=== PATIENT | female | born 1945 | race Caucasian/White ===

== ENCOUNTER 2017-05-13 12:25 | Day surgery (SDC) | payer OTHER ==
[~2017-05-13] VITALS: Ht 160 cm; Wt 78.3 kg
[~2017-05-13 12:25] MED LIST: ASPI325; ASPI81EC; Coq-10100 MG PO; FERR325 PO; FISH1000 PO; GABA100 PO; GLUC500; HYDACE5; HYDCHL25 PO; HYDCHL50; HYDROCHLOROTHIAZIDE; INTRINSI B12-F1 EACH PO; IRON; KETO10; METO50ER; MULTI VITAMIN1 EACH; MULVITB; MULVITMINF; MYRBETRIQ25 MG PO; OMEG1CAP30; OMEGA; POTASSIUM; POTCHL20ER; POTCHL20ER PO; VITAMIN D; VITAMIN D35000 UNIT
[2017-05-13 14:28] LABS: Anion Gap 8 mmol/L (6-16); Blood Urea Nitrogen 12 mg/dL (8-24); Bun/Creatinine Ratio 17.1 (12.0-20.0); CO2, Blood 25 mmol/L (21-32); Calcium, Blood 8.3 mg/dL (8.5-10.1); Chloride, Blood 114 mmol/L (98-108); Glomerular Filtration Rate >60 (60-); Glucose, Blood 94 mg/dL (70-99); Potassium, Blood 3.7 mmol/L (3.5-5.5); Sodium, Blood 147 mmol/L (136-145)
== END 2017-05-13 14:58 | disposition home or self-care (01) ==
LOC: ORSCSDS 12:25
PROVIDERS: Internal Medicine Gastroenterology
PROC: 0DBP8ZX Excision of Rectum, Via Natural or Artificial Opening Endoscopic, Diagnostic (ICD-10-PCS; principal; 2017-05-13 13:45)
DX: R19.5 Other fecal abnormalities (principal); K62.1 Rectal polyp; K57.30 Diverticulosis of large intestine without perforation or abscess without bleeding; D50.9 Iron deficiency anemia, unspecified; E87.6 Hypokalemia; Z87.891 Personal history of nicotine dependence
CPT/HCPCS: 80048; 88305; J1980; J7120

== ENCOUNTER → 2017-08-05 | Outpatient (CLI) | payer OTHER ==
[2017-08-06 14:19] LABS: Stool Occult Bld Immuno 1 Positive (NEGATIVE)
== END ==
LOC: OLS 09:30 → LAB SHORT 09:30 → LAB FUT 08-01 14:15
DX: D50.9 Iron deficiency anemia, unspecified (principal)
CPT/HCPCS: 82274

== ENCOUNTER → 2018-08-27 | Outpatient (CLI) | payer MEDICARE ==
[2018-08-27 13:17] LABS: Source, Urine Catheter
[2018-08-27 13:35] LABS: Appearance, Urine Hazy (Clear); Bilirubin, Urine Neg (Neg); Blood, Urine Neg (Neg); Color, Urine Yellow (P-Yellow); Glucose Qualitative, Urine Neg (Neg); Ketones, Urine Neg (Neg); Leukocyte Esterase, Urine 2+ (Neg); Nitrite, Urine Pos (Neg); Protein, Urine Neg (Neg); Urobilinogen, Urine NORM (Normal)
[2018-08-27 14:09] LABS: Red Blood Cells, Urine 0-2 /hpf (0-2); White Blood Cells, Urine 25-50 /hpf (0-5)
[2018-08-27 14:10] LABS: Bacteria Many /hpf; Squamous Epithelial Cells Rare /hpf (Few)
[2018-08-28 15:06] LABS: HPV 16 Negative (Negative); HPV 18 Negative (Negative); HPV OTHER HR TYPES Positive (Negative)
== END | disposition home or self-care (01) ==
LOC: LAB 13:14 → LAB SHORT 13:14
PROVIDERS: Obstetrics & Gynecology Gynecology
DX: R30.0 Dysuria (principal); Z91.89 Other specified personal risk factors, not elsewhere classified
CPT/HCPCS: 81001; 87077; 87086; 87186; 87624; 87625; G0123

== ENCOUNTER 2019-04-24 09:57 | Day surgery (SDC) | payer MEDICARE ==
[~2019-04-24] VITALS: Ht 160 cm; Wt 73.0 kg
[~2019-04-24 09:57] MED LIST changes: +CLARITIN-D 121 EACH PO; +FERSU300 PO; +GABA100; +GLUCOSAMINE CH1 EAC3 PO; +HYDCHL50 PO; +K-Dur20 MEQ PO; +Multiple Vitam1 EACH PO; +OMEGA-3 EC SOF1 EAC1 PO; +OXYB5 PO; +Super B Comple1 EAC2 PO; +TUMERIC PO; +TUMS500 MG PO; +VITAMIN D35000 UNI2 PO; +YUVAFEM10 MCG
== END 2019-04-24 13:54 | disposition home or self-care (01) ==
LOC: ORSCSDS 09:57
PROVIDERS: Podiatrist Foot & Ankle Surgery
PROC: 0SPM04Z Removal of Internal Fixation Device from Right Metatarsal-Phalangeal Joint, Open Approach (ICD-10-PCS; principal; 2019-04-24 11:30)
PROC: 0QBL0ZZ Excision of Right Tarsal, Open Approach (ICD-10-PCS; principal; 2019-04-24 11:30)
PROC: 0QBN0ZZ Excision of Right Metatarsal, Open Approach (ICD-10-PCS; principal; 2019-04-24 11:30)
PROC: 0SGM04Z Fusion of Right Metatarsal-Phalangeal Joint with Internal Fixation Device, Open Approach (ICD-10-PCS; principal; 2019-04-24 11:30)
DX: M19.071 Primary osteoarthritis, right ankle and foot (principal); M20.5X1 Other deformities of toe(s) (acquired), right foot; T84.84XA Pain due to internal orthopedic prosthetic devices, implants and grafts, initial encounter; Z79.899 Other long term (current) drug therapy
CPT/HCPCS: C1713; J0171; J0690; J1100; J2250; J2370; J2405; J2704; J3010; J7120

== ENCOUNTER → 2019-10-15 | Outpatient (CLI) | payer OTHER | LOC: LAB SHORT 15:20 → LAB 15:20 | DX: R30.0 Dysuria (principal) | CPT/HCPCS: 87077; 87086; 87186 ==

== ENCOUNTER → 2020-07-13 | Outpatient (CLI) | payer OTHER ==
[2020-07-13 13:17] LABS: Appearance, Urine Clear (Clear); Bilirubin, Urine Neg (Neg); Blood, Urine Neg (Neg); Color, Urine Yellow (P-Yellow); Glucose Qualitative, Urine Neg (Neg); Ketones, Urine Neg (Neg); Leukocyte Esterase, Urine Neg (Neg); Nitrite, Urine Neg (Neg); Protein, Urine Neg (Neg); Specific Gravity, Urine 1.015 (1.003-1.022); Urobilinogen, Urine NORM (Normal)
== END | disposition home or self-care (01) ==
LOC: LAB 12:18 → LAB SHORT 12:18
PROVIDERS: Registered Nurse
DX: R35.0 Frequency of micturition (principal); R30.0 Dysuria
CPT/HCPCS: 81003

== ENCOUNTER → 2020-09-23 | Outpatient (CLI) | payer OTHER ==
[2020-09-23 17:51] LABS: Phosphorus, Urine 55.2 mg/dL (20.0-60.0)
[2020-09-23 17:57] LABS: Protein, Urine Quantitative 13.3 mg/dL (0.0-11.9); Sodium, Urine 47 mmol/L (20-110); Uric Acid, Urine 41.2 mg/dL (7.5-49.5); Urine Potassium 46 mmol/L (12.0-75.0)
[2020-09-23 18:03] LABS: Calcium, Urine <5.0 mg/dL (< 17.5); Calcium, Urine Calculation Unable to Calculate mg/24hrs (42.0-353.0)
[2020-09-23 18:10] LABS: Microalbumin, Urine Quant. <5.000 mg/L (0.000-20.000)
== END | disposition home or self-care (01) ==
LOC: LAB SHORT 09:30 → LAB 09:30
PROVIDERS: Internal Medicine Nephrology
DX: N18.30 Chronic kidney disease, stage 3 unspecified (principal); D63.1 Anemia in chronic kidney disease; M10.9 Gout, unspecified; N25.81 Secondary hyperparathyroidism of renal origin; E55.9 Vitamin D deficiency, unspecified; E78.00 Pure hypercholesterolemia, unspecified; D51.8 Other vitamin B12 deficiency anemias; D52.8 Other folate deficiency anemias; D50.0 Iron deficiency anemia secondary to blood loss (chronic); R94.5 Abnormal results of liver function studies; R76.9 Abnormal immunological finding in serum, unspecified; R94.6 Abnormal results of thyroid function studies
CPT/HCPCS: 81050; 82043; 82340; 82570; 84105; 84133; 84156; 84300; 84560

== ENCOUNTER → 2020-12-05 | Outpatient (CLI) | payer OTHER ==
[2020-12-05 11:22] LABS: BASOPHILS ABSOLUTE AUTO 0.06 K/mm3 (0.00-0.23); BASOPHILS PERCENT AUTO 1 % (0-2); EOSINOPHILS ABSOLUTE AUTO 0.24 K/mm3 (0.00-0.68); EOSINOPHILS PERCENT AUTO 4 % (0-6); Hematocrit 41.5 % (33.0-51.0); Hemoglobin 13.1 g/dL (11.5-16.0); IMMATURE GRAN ABSOLUTE AUTO 0.04 K/mm3 (0.00-0.10); IMMATURE GRAN PERCENT AUTO 1 % (0-1); LYMPHOCYTES ABSOLUTE AUTO 1.04 K/mm3 (0.84-5.20); LYMPHOCYTES PERCENT AUTO 17 % (21-46); MONOCYTES ABSOLUTE AUTO 0.43 K/mm3 (0.16-1.47); MONOCYTES PERCENT AUTO 7 % (4-13); Mean Corpuscular HGB 31.2 pg (26.0-34.0); Mean Corpuscular HGB Conc 31.6 g/dL (31.5-36.5); Mean Corpuscular Volume 99 fL (80-100); Mean Platelet Volume 9.7 fL (9.1-12.4); NEUTROPHILS ABSOLUTE AUTO 4.18 K/mm3 (1.96-9.15); NEUTROPHILS PERCENT AUTO 70 % (41-73); Platelet Count 221 K/mm3 (150-400); RDW Coefficient Variation 13.2 % (11.7-14.2); RDW Standard Deviation 47.8 fL (35.1-46.3); White Blood Cell Count 5.99 K/mm3 (4.00-11.30)
[2020-12-05 13:51] LABS: Albumin, Blood 3.3 g/dL (3.4-5.0); Albumin/Globulin Ratio 1.1 (0.8-1.8); Bilirubin, Total 0.6 mg/dL (0.1-1.0); Calcium, Blood 8.5 mg/dL (8.5-10.1); Creatinine, Blood 0.96 mg/dL (0.40-1.00); Percent Saturation 29.2 % (15.0-50.0); Potassium, Blood 4.4 mmol/L (3.5-5.5); Total Protein, Blood 6.3 g/dL (6.4-8.2)
== END | disposition home or self-care (01) ==
LOC: OLS 10:28 → LAB SHORT 10:28 → LAB FUT 09-27 10:55
PROVIDERS: Nurse Practitioner Family
DX: R53.83 Other fatigue (principal)
CPT/HCPCS: 36415; 80053; 82043; 82306; 82607; 82728; 82746; 83540; 83550; 85025

== ENCOUNTER → 2021-01-07 | Outpatient (CLI) | payer OTHER ==
[2021-01-08 13:30] LABS: Stool Occult Bld Immuno 1 Positive (NEGATIVE)
== END | disposition home or self-care (01) ==
LOC: LAB SHORT 15:00 → OLS 15:00
PROVIDERS: Internal Medicine Gastroenterology
DX: D50.9 Iron deficiency anemia, unspecified (principal)
CPT/HCPCS: 82274

== ENCOUNTER 2021-08-04 10:56 | Day surgery (SDC) | payer OTHER ==
[~2021-08-04] VITALS: Ht 160 cm; Wt 76.0 kg
[~2021-08-04 10:56] MED LIST changes: +FAMO10 PO; +HYDR1TAB94 PO; +IBUP600 PO; +OMEP20ER PO; +ONDA4ODT MM; +PROC5 PO; +SUCR1 PO; +VITAMIN D310 MC4 PO; +Vitamin B Comple1 EA PO
--- NOTE | 2021-08-04 14:41 | NUR ---
Dressing to procedure site clean, dry, intact with no visible drainage, swelling, erythema or bruising noted. Discharge instructions reviewed with patient. Patient verbalizes understanding. Copy given to patient to take home. Daughter at bedside.
--- NOTE | 2021-08-04 15:24 | NUR ---
PT STATES PAIN IS TOLERABLE AFTER RECEIVING PAIN MEDICATION. Discharged via wheelchair to private car for ride home.
== END 2021-08-04 15:10 | disposition home or self-care (01) ==
LOC: ORSCMMR 10:56 → ORD 12:30 → ORSCMMR 15:10
PROVIDERS: Surgery
PROC: 0FT44ZZ Resection of Gallbladder, Percutaneous Endoscopic Approach (ICD-10-PCS; principal; 2021-08-04 12:30)
DX: K80.10 Calculus of gallbladder with chronic cholecystitis without obstruction (principal); K21.9 Gastro-esophageal reflux disease without esophagitis; F41.8 Other specified anxiety disorders; Z79.899 Other long term (current) drug therapy
CPT/HCPCS: 88304; A9270; J0690; J1100; J1885; J2250; J2405; J2704; J2710; J3010; J7120

== ENCOUNTER → 2021-10-10 | Outpatient (CLI) | payer OTHER ==
[2021-10-10 10:40] LABS: BASOPHILS ABSOLUTE AUTO 0.04 K/mm3 (0.00-0.23); BASOPHILS PERCENT AUTO 0 % (0-2); EOSINOPHILS ABSOLUTE AUTO 0.14 K/mm3 (0.00-0.68); EOSINOPHILS PERCENT AUTO 2 % (0-6); Hematocrit 45.1 % (33.0-51.0); Hemoglobin 14.6 g/dL (11.5-16.0); IMMATURE GRAN ABSOLUTE AUTO 0.08 K/mm3 (0.00-0.10); IMMATURE GRAN PERCENT AUTO 1 % (0-1); LYMPHOCYTES ABSOLUTE AUTO 0.84 K/mm3 (0.84-5.20); LYMPHOCYTES PERCENT AUTO 9 % (21-46); MONOCYTES ABSOLUTE AUTO 0.22 K/mm3 (0.16-1.47); MONOCYTES PERCENT AUTO 2 % (4-13); Mean Corpuscular HGB 30.4 pg (26.0-34.0); Mean Corpuscular HGB Conc 32.4 g/dL (31.5-36.5); Mean Corpuscular Volume 94 fL (80-100); Mean Platelet Volume 9.3 fL (9.1-12.4); NEUTROPHILS ABSOLUTE AUTO 8.03 K/mm3 (1.96-9.15); NEUTROPHILS PERCENT AUTO 86 % (41-73); Platelet Count 261 K/mm3 (150-400); RDW Coefficient Variation 14.7 % (11.7-14.2); RDW Standard Deviation 50.2 fL (35.1-46.3); Red Blood Cell Count 4.81 M/mm3 (3.80-5.20); White Blood Cell Count 9.35 K/mm3 (4.00-11.30)
[2021-10-10 11:12] LABS: Percent Saturation 33.3 % (15.0-50.0)
[2021-10-10 11:18] LABS: Albumin, Blood 3.6 g/dL (3.4-5.0); Anion Gap 7 mmol/L (6-16); Blood Urea Nitrogen 21 mg/dL (8-24); Bun/Creatinine Ratio 24.3 (12.0-20.0); CO2, Blood 22 mmol/L (21-32); Calcium, Blood 8.9 mg/dL (8.5-10.1); Chloride, Blood 110 mmol/L (98-108); Creatinine, Blood 0.86 mg/dL (0.40-1.00); Glomerular Filtration Rate 70 (60-); Glucose, Blood 112 mg/dL (70-99); Phosphorus, Blood 3.8 mg/dL (2.5-4.9); Potassium, Blood 3.7 mmol/L (3.5-5.5); Sodium, Blood 139 mmol/L (136-145)
== END | disposition home or self-care (01) ==
LOC: LAB SHORT 10:03 → LAB FUT 01-23 10:25
PROVIDERS: Internal Medicine Nephrology; Registered Nurse Oncology
DX: N18.30 Chronic kidney disease, stage 3 unspecified (principal); D63.1 Anemia in chronic kidney disease; D50.9 Iron deficiency anemia, unspecified; D51.9 Vitamin B12 deficiency anemia, unspecified
CPT/HCPCS: 36415; 80069; 82728; 83540; 83550; 85018; 85025

== ENCOUNTER 2023-03-04 11:41 | Day surgery (SDC) | payer OTHER ==
[~2023-03-04] VITALS: Ht 160 cm; Wt 69.7 kg
[2023-03-04] MEDS ORDERED: OMEP20ER (12:25)
[2023-03-04] MEDS ORDERED: PROBIOTIC1 EA14 (12:27)
[2023-03-04] MEDS ORDERED: MYRBETRIQ25 MG (12:27)
[2023-03-04] MEDS ORDERED: CENTRUM SILVER1 EAC2 (12:28)
[2023-03-04] MEDS ORDERED: HYDCHL50 (12:29)
[2023-03-04] MEDS ORDERED: [UNRECOGNIZED DRUG - CODE] (12:29)
[2023-03-04] MEDS ORDERED: POTA20PAC (12:30)
[2023-03-04] MEDS ORDERED: CHONDROITIN SU100 G1 (12:30)
[2023-03-04] MEDS ORDERED: SOAANZ20 M1 (12:31)
[2023-03-04] MEDS ORDERED: SPIR25 (12:31)
[2023-03-04 14:15] VITALS: BP 133/80
--- NOTE | 2023-03-04 14:16 | NUR ---
03/04/23 1416 Felipe Quinonez BP 80S IN PROCEDURE ROOM, MD NOTIFIED, MD ADVISED TO MONITOR VS. IN SDU FLUIDS CONTINUED AND VS MONITORED. BP STABLIZED TO 133/80, NO MEDICATIONS ADMINISTERED, MD NOTIFIED. PT DENIED S/S OF LOW BP.
[2023-03-12] MEDS ORDERED: LEVOFLOXACIN PO (19:49)
== END 2023-03-04 14:13 | disposition home or self-care (01) ==
LOC: ORSCSDS 11:41
PROVIDERS: Internal Medicine Gastroenterology
PROC: 0DB68ZX Excision of Stomach, Via Natural or Artificial Opening Endoscopic, Diagnostic (ICD-10-PCS; 2023-03-04)
PROC: 0DB58ZX Excision of Esophagus, Via Natural or Artificial Opening Endoscopic, Diagnostic (ICD-10-PCS; 2023-03-04)
PROC: 0D757ZZ Dilation of Esophagus, Via Natural or Artificial Opening (ICD-10-PCS; principal; 2023-03-04 13:00)
DX: R13.14 Dysphagia, pharyngoesophageal phase (principal); R10.13 Epigastric pain; K29.70 Gastritis, unspecified, without bleeding; Z79.82 Long term (current) use of aspirin; Z79.899 Other long term (current) drug therapy
CPT/HCPCS: 88305; 88342; J2704; J7120

== ENCOUNTER → 2023-03-11 | Outpatient (CLI) | payer OTHER ==
[~2023-03-11] MED LIST changes: +CENTRUM SILVER1 EAC2; +CHONDROITIN SU100 G1; +LEVOFLOXACIN PO; +MYRBETRIQ25 MG; +OMEP20ER; +POTA20PAC; +PROBIOTIC1 EA14; +SOAANZ20 M1; +SPIR25; +[UNRECOGNIZED DRUG - CODE]
== END | disposition home or self-care (01) ==
LOC: LAB SHORT 12:00 → LAB 12:00
DX: N39.0 Urinary tract infection, site not specified (principal)
CPT/HCPCS: 87077; 87086; 87186

== ENCOUNTER → 2023-03-18 | Outpatient (CLI) | payer OTHER | LOC: LAB 15:24 → LAB SHORT 15:24 | DX: N39.0 Urinary tract infection, site not specified (principal) | CPT/HCPCS: 87086 ==

== ENCOUNTER → 2023-10-18 | Outpatient (CLI) | payer OTHER | LOC: LAB 15:40 → LAB SHORT 15:40 | DX: N39.0 Urinary tract infection, site not specified (principal) | CPT/HCPCS: 87077; 87086; 87186; 93005; 93010 ==

== ENCOUNTER 2025-03-11 08:08 | Inpatient (IN) | payer OTHER | END 2025-03-13 17:10 | DRG 482 | LOC: ER 08:08 → SURS 10:21 | PROVIDERS: ADMIT Student in an Organized Health Care Education/Training Program | PROC: 0QS736Z Reposition Left Upper Femur with Intramedullary Internal Fixation Device, Percutaneous Approach (ICD-10-PCS; principal; 2025-03-12) | PROC: 3E03329 Introduction of Other Anti-infective into Peripheral Vein, Percutaneous Approach (ICD-10-PCS; 2025-03-12) | DX: S72.141A Displaced intertrochanteric fracture of right femur, initial encounter for closed fracture (principal); D50.9 Iron deficiency anemia, unspecified; M81.0 Age-related osteoporosis without current pathological fracture; N32.81 Overactive bladder; N89.8 Other specified noninflammatory disorders of vagina; Z60.2 Problems related to living alone; Z98.84 Bariatric surgery status; Z87.442 Personal history of urinary calculi; Z96.653 Presence of artificial knee joint, bilateral; Z98.890 Other specified postprocedural states; Z79.899 Other long term (current) drug therapy; Z88.1 Allergy status to other antibiotic agents; Z88.5 Allergy status to narcotic agent; Z87.891 Personal history of nicotine dependence; W01.0XXA Fall on same level from slipping, tripping and stumbling without subsequent striking against object, initial encounter ==